=== PATIENT | female | born 1980 | race African-American/Black ===

== ENCOUNTER 2016-07-10 09:58 | Emergency (ER) | payer OTHER ==
[2016-07-10 10:37] LABS: CALCIUM, SERUM 9.1 MG/DL (8.5-10.4); CHLORIDE, SERUM 110 MMOL/L (96-112); CREATININE 0.77 MG/DL (0.55-1.02); GFR AFRICAN AMERICAN 114 ML/MIN (>=60); GFR NON AFRICAN AMERICAN 99 ML/MIN (>=60); GLUCOSE, SERUM 93 MG/DL (60-99); SODIUM, SERUM 141 MMOL/L (135-148)
[2016-07-10 10:38] LABS: BUN (BLOOD UREA NITROGEN) 7 MG/DL (6-23); CO2 (CARBON DIOXIDE) 27 MMOL/L (24-34); POTASSIUM, SERUM 4.6 MMOL/L (3.5-5.3)
== END 2016-07-10 13:14 | disposition home or self-care (01) ==
LOC: ER 09:58
PROVIDERS: Nurse Practitioner Family
DX: M25.511 Pain in right shoulder (principal); I10 Essential (primary) hypertension; F17.200 Nicotine dependence, unspecified, uncomplicated; F32.9 Major depressive disorder, single episode, unspecified; F41.9 Anxiety disorder, unspecified
CPT/HCPCS: 73030-RT; 80048; 96372; 99284; J1885